=== PATIENT | female | born 1990 | race Caucasian/White ===

== ENCOUNTER 2025-04-21 11:43 | Emergency (ER) | payer MEDICAID, OTHER ==
[~2025-04-21] VITALS: Ht 165.1 cm; Wt 64.4 kg
[2025-04-21] MEDS ORDERED: OLANZAPINE 10 MG VIAL IM ONE (11:46)
[2025-04-21] MEDS: OLANZAPINE 10 MG VIAL IM ONE (11:56)
[2025-04-21] MEDS: IV NS 0.9% 1,000 ML BAG IV ONE (12:11)
[2025-04-21 12:19] LABS: PLATELET COUNT (AUTO) 361 K/uL (150-450); RED BLOOD CELL COUNT(AUTO) 3.95 MIL/uL (4.0-5.2); RED CELL DISTRIBUTION WIDTH 12.8 % (11.5-15.0); WHITE BLOOD COUNT (AUTO) 13.5 K/uL (4.3-11.0)
[2025-04-21 12:44] LABS: CALCIUM, SERUM 9.1 mg/dL (8.5-10.1); CREATININE 1.1 mg/dL (0.6-1.3); SODIUM SERUM 143 mmol/L (136-145); UREA NITROGEN, BLOOD 11 mg/dL (7-18)
[2025-04-21 12:48] LABS: ALCOHOL, BLOOD < 3 mg/dL (0-10); ASPARTATE AMINOTRANSFERASE 28 U/L (15-37); TOTAL PROTEIN, SERUM 7.2 g/dL (6.4-8.2)
[2025-04-21 13:25] LABS: APPEARANCE,URINE CLEAR (CLEAR); BLOOD, URINE NEGATIVE Ery/uL (NEGATIVE); LEUKOCYTE ESTERASE ,URINE NEGATIVE (NEGATIVE); NITRITE, URINE NEGATIVE (NEGATIVE); UGLUCOSE NEGATIVE (NEGATIVE)
[2025-04-21 13:39] LABS: AMPHETAMINE, URINE NEGATIVE (NEGATIVE); BARBITURATE, URINE NEGATIVE (NEGATIVE); BENZODIAZEPINE, URINE NEGATIVE (NEGATIVE); COCCAINE, URINE NEGATIVE (NEGATIVE); OPIATE, URINE NEGATIVE (NEGATIVE)
[2025-04-21 13:41] LABS: CANNABINOID, URINE POSITIVE (NEGATIVE)
[2025-04-21] MEDS ORDERED: LORAZEPAM INJ 2 MG/ML VIAL ONE ×2 (14:43→15:34)
[2025-04-21] MEDS: LORAZEPAM INJ 2 MG/ML VIAL IM ONE ×2 (14:50→16:05)
[2025-04-21 16:45] VITALS: TEMP 97.9
[2025-04-21] MEDS: OLANZAPINE 5 MG TABLET PO ONE ×2 (19:24→21:20)
[2025-04-21] MEDS ORDERED: OLANZAPINE 5 MG TABLET ONE (21:12)
[2025-04-21 21:41] VITALS: BP 118/77; O2SAT 98
== END 2025-04-21 21:41 | disposition home or self-care (01) ==
LOC: ER 11:50
DX: R45.6 Violent behavior (principal); R00.0 Tachycardia, unspecified; Z20.822 Contact with and (suspected) exposure to COVID-19; Z79.899 Other long term (current) drug therapy
CPT/HCPCS: 99285; 96372 ×2; 96360; 93005; 85025; 80048; 80076; 81003; 36415; 87426; 80143; 80320; 80307; J2060 ×2; J1200; J3490; G0480